=== PATIENT | male | born 1975 | race Caucasian/White ===

== ENCOUNTER → 2020-09-19 10:45 | Outpatient (BNVA) | payer OTHER, SELFPAY | PROVIDERS: PCP Family Medicine; Visit Provider Physician Assistant Medical | DX: S39.012A Strain of muscle, fascia and tendon of lower back, initial encounter (principal); X58.XXXA Exposure to other specified factors, initial encounter; Y93.9 Activity, unspecified; Y92.9 Unspecified place or not applicable; Y99.8 Other external cause status | CPT/HCPCS: 99203 ==

== ENCOUNTER → 2020-09-23 09:12 | Outpatient (BNVA) | payer OTHER, SELFPAY | PROVIDERS: PCP Family Medicine; Visit Provider Physician Assistant Medical | DX: S33.9XXD Sprain of unspecified parts of lumbar spine and pelvis, subsequent encounter (principal); X58.XXXD Exposure to other specified factors, subsequent encounter; M46.1 Sacroiliitis, not elsewhere classified | CPT/HCPCS: 99213 ==

== ENCOUNTER → 2020-09-26 09:33 | Outpatient (BNVA) | payer OTHER, SELFPAY | PROVIDERS: PCP Family Medicine; Visit Provider Physician Assistant | DX: S39.012D Strain of muscle, fascia and tendon of lower back, subsequent encounter (principal); X58.XXXD Exposure to other specified factors, subsequent encounter | CPT/HCPCS: 99213 ==

== ENCOUNTER → 2020-10-07 09:28 | Outpatient (BNVA) | payer OTHER, SELFPAY | PROVIDERS: PCP Family Medicine; Visit Provider Physician Assistant Medical | DX: S33.9XXD Sprain of unspecified parts of lumbar spine and pelvis, subsequent encounter (principal); X58.XXXD Exposure to other specified factors, subsequent encounter | CPT/HCPCS: 99213 ==

== ENCOUNTER 2020-10-24 15:00 | Outpatient (RCR) | payer OTHER, SELFPAY ==
--- NOTE | 2020-09-30 09:18 | MHC.PT.EP ---
[facility] [place] Office [place] Office [place] Office [address] Michael Hutchinson [address] [phone] F: [phone] F: [phone] F: [phone] F: [phone] Physical Therapy Plan of Care Date of Evaluation: 09/30/20 Date of Surgery: NA Diagnosis: Lumbar strain/ sprain Assessment: 44 year old male referred for lumbar strain . Pt injured himself at work about 2 weeks back while was moving a 15lbs tool. He was standing straight and trying to move the tool to the L side when he experienced sharp pain in the L side of his back. Pt's pain got worse with time. No imaging done at this time. Examination reveals pain levels from 4/10 to 7/10 pain with standing for more than 10 minuted, bending, lifting and sitting, decreased trunk ROM, decreased muscle strength, altered posture, and positive response to rubio exercises. He is independent with all ADLS but modifies the way he performs them due to pain. 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 He is a good candidate for PT based on age, goals, physical impairments and functional limitations. He would benefit from therapy to decrease pain, improve ROM, increase muscle strength, postural correction and functional training. Frequency and Duration: The patient will be seen 2/week for 5 weeks Short Term Goals: 1. Pt will have 50% decrease in pain in weeks. 2. Pt will be able to move trunk through all planes of motion without pain in 3 weeks. Radiation Physicist Goals: 1. Pt will be able to perform all ADLS without pain in 4 weeks. 2. Pt will return to PLOF in 5 weeks. Treatment Plan: Modalities to reduce pain, spasms and effusion. Manual therapy to restore motion and function. Therapeutic exercise to improve strength and flexibility. Neuromuscular re-education for posture and balance. Therapeutic activities to return to functional activities of daily living. Electronically signed by: Mariza White DPT Please sign and return to therapist. Thank you for your referral.
--- NOTE | 2020-11-09 10:17 | MHC.PT.DC ---
[facility] [place] Office [place] Office [place] Office [address] Michael Hutchinson [address] [phone] F: [phone] F: [phone] F: [phone] F: [phone] Physical Therapy Discharge Report Diagnosis: Lumbar strain/ sprain Date of Surgery: NA Date of Evaluation: 09/30/20 Date of Discharge: 11/09/20 Treatments to Date: 6 Cancellations to Date: 0 No Shows to Date: 0 Discharge Status: Patient Elected to Stop Discharge Summary: Pt stated that he was pain free and was cleared to return to work. Pt therefore d/c self from therapy. Electronically signed by: Mariza White DPT Please sign and return to therapist. Thank you for your referral.
== END 2020-11-09 10:18 | disposition other institution (70) ==
LOC: HO.PT 15:00
PROVIDERS: PCP Family Medicine; Visit Provider Physician Assistant
DX: S39.012D Strain of muscle, fascia and tendon of lower back, subsequent encounter (principal); M62.830 Muscle spasm of back
CPT/HCPCS: 97110; 97140; 97161; 97530

== ENCOUNTER → 2020-10-26 09:08 | Outpatient (BNVA) | payer OTHER, SELFPAY | PROVIDERS: PCP Family Medicine; Visit Provider Physician Assistant Medical | DX: S39.012D Strain of muscle, fascia and tendon of lower back, subsequent encounter (principal); X58.XXXD Exposure to other specified factors, subsequent encounter | CPT/HCPCS: 99213 ==

== ENCOUNTER 2021-12-08 06:13 | Outpatient (REF) | payer OTHER, SELFPAY ==
--- NOTE | ~2021-12-08 | XR_ITS ---
EXAMINATION: XR HIP, RIGHT CLINICAL INFORMATION: Right hip pain. COMPARISON: None TECHNIQUE: Two views of the right hip. FINDINGS: There is a lytic region within the right femoral head with sclerotic margin and some deformity of the superior aspect of the femoral head with the appearance of possible avascular necrosis. Hip joint space is maintained. No dislocation evident. There appears to be mild degree of femoral head collapse with fracture. XR/XR hip RT min 2V IMPRESSION: Findings consistent with avascular necrosis of the right hip.
[2021-12-08 06:47] LABS: MANUAL DIFF FLAG NO
[2021-12-08 07:10] LABS: Basophils Percent Auto 0.6 % (0-2); Eosinophils Absolute Auto 0.1 X10*3/uL (0.0-0.4); Hematocrit 43.1 % (42.0-52.0); Imm Gran Abs Auto 0.02 X10*3/uL (0.00-0.03); Imm Gran Pct Auto 0.4 % (0.0-0.4); Lymphocytes Absolute Auto 1.4 X10*3/uL (1.2-4.9); Lymphocytes Percent Auto 26.9 % (20-40); Mean Corpuscular HGB Conc 34.8 g/dl (31.0-36.0); Mean Corpuscular Hemoglobin 30.8 pg (27.0-33.0); Mean Corpuscular Volume 88.5 fL (80.0-98.0); Mean Platelet Volume 9.2 fL (9.4-12.4); Monocytes Absolute Auto 0.4 X10*3/uL (0.1-1.2); Monocytes Percent Auto 6.9 % (2-11); Neutrophils Absolute Auto 3.2 x10*3/uL (2.0-8.3); Neutrophils Percent Auto 63.2 % (45-73); Platelet Count 230 X10*3/uL (160-400); Red Blood Count 4.87 X10*6/uL (4.60-5.80); Red Cell Distribution Width 12.8 % (11.0-16.0); White Blood Count 5.1 X10*3/uL (4.8-10.8)
[2021-12-08 07:30] LABS: Alanine Aminotransferase 43 U/L (0-40); Aspartate Amino Transferase 55 U/L (5-37); Cholesterol 201 mg/dL; Glucose Fasting 98 mg/dL (60-99); HDL Cholesterol 56 mg/dL; LDL Cholesterol Calculated 68 mg/dl; Triglycerides 385 mg/dL
[2021-12-08 07:54] LABS: Erythrocyte Sedimentation Rate 13 MM/HR (0-15)
[2021-12-08 07:55] LABS: Thyroid Stimulating Hormone 1.91 uIU/mL (0.32-4.0)
== END 2021-12-08 06:14 | disposition home or self-care (01) ==
LOC: HO.LAB 06:13
PROVIDERS: PCP Family Medicine; Visit Provider Family Medicine
DX: M25.551 Pain in right hip (principal); E78.00 Pure hypercholesterolemia, unspecified; G25.2 Other specified forms of tremor
CPT/HCPCS: 36415; 73502; 80061; 82947; 84443; 84450; 84460; 85025; 85652

== ENCOUNTER 2021-12-28 11:58 | Outpatient (REF) | payer OTHER, SELFPAY ==
--- NOTE | ~2021-12-28 | XR_ITS ---
EXAMINATION: XR PELVIS CLINICAL INFORMATION: Pain and unspecified hip COMPARISON: Radiograph's of the right hip 12/08/2021 TECHNIQUE: AP view of the pelvis. FINDINGS: Redemonstration of lytic and sclerotic changes along the superior aspect of the right femoral head with contour irregularity/flattening of the superior margin compatible with avascular necrosis. There is subtle sclerosis and irregularity along the superomedial aspect of the left femoral head which may represent a smaller area of avascular necrosis as well with minor cortical flattening. The hips are in alignment and joint spaces are maintained. Pelvic ring is maintained. The sacroiliac joints and pubic symphysis are in alignment. Soft tissues are unremarkable. XR/XR pelvis 1-2V IMPRESSION: Redemonstration of changes relating to avascular necrosis of the right femoral head with possible smaller region of AVN involving the superomedial margin of the left femoral head.
== END 2021-12-28 11:59 | disposition home or self-care (01) ==
LOC: HO.HOSX 11:58
PROVIDERS: Visit Provider Orthopaedic Surgery
DX: M25.559 Pain in unspecified hip (principal); M87.051 Idiopathic aseptic necrosis of right femur
CPT/HCPCS: 72170

== ENCOUNTER → 2022-01-01 15:33 | Outpatient (BNVA) | payer OTHER, SELFPAY | PROVIDERS: Visit Provider Orthopaedic Surgery | DX: Z13.89 Encounter for screening for other disorder (principal) ==

== ENCOUNTER → 2022-01-11 10:26 | Outpatient (BNVA) | payer OTHER, SELFPAY | PROVIDERS: PCP Family Medicine; Visit Provider Physician Assistant | DX: Z01.818 Encounter for other preprocedural examination (principal); M87.051 Idiopathic aseptic necrosis of right femur | CPT/HCPCS: 99212 ==

== ENCOUNTER 2022-01-16 10:35 | Inpatient (IN) | payer OTHER, SELFPAY ==
--- NOTE | 2022-01-02 | ECG_ITS ---
Test Reason : preop Blood Pressure : / mmHG Vent. Rate : 088 BPM Atrial Rate : 088 BPM P-R Int : 150 ms QRS Dur : 096 ms QT Int : 356 ms P-R-T Axes : 007 019 038 degrees QTc Int : 430 ms Normal sinus rhythm Incomplete right bundle branch block Borderline ECG When compared with ECG of 12-JAN-2008 05:50, No significant change was found Referred By: Martin Santana Electronically Signed By:CHECO SCHWARTZ
--- NOTE | 2022-01-03 12:36 | CONS_ITS ---
DATE OF SERVICE: 01/16/2022 HISTORY OF PRESENT ILLNESS: This is a 46-year-old white male, well known to me, who presents preoperatively in my office on January 01, 2022. The patient has been seen by Dr. Santana because of progressive right hip pain without any history of known trauma. X-rays reveal obvious aseptic necrosis and he is scheduled for hip replacement 2 weeks from now. I have reviewed his records thoroughly. PAST MEDICAL HISTORY: Includes incomplete right bundle-branch block, occasional intermittent back pain for muscle spasm. He has had inguinal hernia repairs. He has a colon polyp of marginal significance. He has had borderline hypertension in the past, often associated with anxiety, which is a chronic problem for him. Often white-coat type hypertension. He has elevated triglycerides. He also has a family history of cardiovascular disease and slight intentional tremors with little clinical significance. Unfortunately, most of the time when we see him in the office, his blood pressure and sometimes often his pulse are quite elevated. Outside the office, they are variable, but the patient admits he is very nervous and particularly nervous about the surgery coming up. On speaking with the patient other than his anxiety over the surgery, he has otherwise felt fairly well. I have reviewed the orthopedic notes on this case. He presently takes no prescription medications. REVIEW OF SYSTEMS: He has had no chest pain, shortness of breath, known palpitations. He has had no acid reflux, bowel change, or any GI issues. No edema. Genitourinary review of systems is unremarkable. His chief complaint of course is his right hip is quite sore and he has had some limitation in movement secondary to this. Retrospectively, the patient did mention occasional nonspecific pain in the left upper chest in the axilla region, which is random and hurts on movement. This was probably musculoskeletal. The only thing he actually takes at home is a magnesium pill at bedtime. Recently he had noticed slight intention tremors, which have not being clinically significant but we noted it. PHYSICAL EXAMINATION: GENERAL: We find a pleasant, anxious white male, in no distress. He is alert and oriented. He is in no distress. VITAL SIGNS: Unfortunately, his blood pressure is 162/88 and his pulse is 110 at rest. HEENT: Conjunctivae pink, sclerae white. Mucous membranes are moist. NECK: Neck veins are flat. No lymphadenopathy. Carotids are 2+ without bruits. LUNGS: Clear. HEART: Reveals normal sinus rhythm, rate about a 100 to 110. No murmurs are appreciated. ABDOMEN: Soft, nontender. No masses or organomegaly. EXTREMITIES: There is no edema. NEUROLOGIC: Unremarkable. Actually, the tremor he has had in the past were actually little bit less. His EKG which was done on January 02 reveals a normal sinus rhythm. Incomplete right bundle-branch block. No acute changes and no different than it has been over the years. LABORATORY DATA: His laboratory work which was done in November reveals triglycerides of 388, which is in the range of what has been running. Cholesterol however is not bad at 201 with the LDL of 68. His TSH was 1.91, his SGPT is slightly elevated at 43, and fasting blood sugar 98. I believe the modest elevation of his liver enzyme is probably secondary to his triglycerides and maybe early fatty liver. IMPRESSION: 1. Right hip avascular necrosis. 2. Secondary sinus tachycardia. 3. Anxiety and stress. 4. Probable secondary hypertension. 5. High triglycerides. 6. Question fatty liver. 7. History of incomplete right bundle-branch block. 8. Family history of cardiovascular disease. From a medical standpoint, he is fairly stable. I am concerned about his blood pressure and pulse which are may be anxiety related. I started him on low dose propranolol 20 mg t.i.d. to see if this will settle his blood pressure and pulse down somewhat. He has been advised on potential side effects of this as well as to call me if his vital signs change in any way. He is advised not to drink any alcohol for the next few weeks as long as he is on these medications. Otherwise, he is cleared for his surgery. Thank you very much. MD RAMIREZ Falk/WILY / [id number] MARIO
[2022-01-04 12:07] VITALS: BP 159/85; PULSE 98; RESP 20; O2SAT 97; BMI 28.1
--- NOTE | 2022-01-04 12:18 | HO.ANESPROP2 ---
Documented by User: Taisha Thomas NP 01/15/22 09:14 HPI - Anesthesia Eval Consult details Narrative: 46yo M for Right Hip Total Replacement PCP cleared [facility] Active Problems Active Problems: All Active Problems (Updated 01/03/22 @ 09:53 by Sally Phillips RN) Avascular necrosis of bone of right hip (Acute) HTN (hypertension) (Acute) Past Medical History Medical History Anxiety Avascular necrosis of bone of right hip History of right bundle branch block (RBBB) Insomnia Family History Family history of problems with anesthesia: No Surgical History Surgical History History of left inguinal hernia repair History of right inguinal hernia repair History of umbilical hernia repair Hx of colonoscopy History of Problems with Anesthesia: No Social History Social History Are you a primary med care manager to a significant other at home: No Do you presently have visiting nurse or other home services: No Patient Tobacco Use Status: Never used Tobacco Use of substances other than those prescribed or required for medical reasons: Yes Substance Use Type: Marijuana Substance Use Frequency: Daily Have you been hit, kicked, punched, or otherwise hurt by someone within the past year? 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 No CP/SOB with minimal Meds Allergies Allergy/AdvReac Type Severity Reaction Status Date / Time No Known Allergies Allergy Verified 01/11/22 10:30 Home Medications Medication Instructions Recorded Confirmed Last Taken Type ibuprofen 200 mg tablet (Advil) 400 mg PO Q8H 01/03/22 01/16/22 01/02/22 History propranolol 20 mg tablet 20 mg PO TID 01/03/22 01/16/22 01/16/22 11:52 History Exam Exam Date and Time: January 04, 2022 1218 Height,Weight and Vital Signs: Height 5 ft 10 in Weight 88.904 kg Last Vital Signs Pulse 98 01/04/22 12:07 Resp 20 01/04/22 12:07 BP 159/85 H 01/04/22 12:07 Pulse Ox 97 01/04/22 12:07 Pertinent Lab Results Pertinent Lab Results: Laboratory Tests 12/08/21 01/04/22 01/04/22 06:44 13:02 16:10 WBC 5.1 Hgb 15.0 Hct 43.1 Plt Count 230 Sodium 138 Potassium 4.1 Chloride 104 Carbon Dioxide 23 BUN 12 Creatinine 0.81 Nasal Screen MRSA (PCR) NEGATIVE Nasal S. aureus Screen NEGATIVE Nasal MRSA/S.aureus Interp SEE NOTE Narrative Narrative: EKG 12/2021 Vent. Rate : 088 BPM ? ? Atrial Rate : 088 BPM ?? P-R Int : 150 ms? QRS Dur : 096 ms ? ? QT Int : 356 ms ? ? ? P-R-T Axes : 007 019 038 degrees ?? QTc Int : 430 ms ? Normal sinus rhythm Incomplete right bundle branch block Borderline ECG When compared with ECG of 12-JAN-2008 05:50, No significant change was found Airway Mallampati Class: I TM Dist: >3cm Neck ROM: Full Loose/Missing/Broken Teeth: Yes (Molars missing) Heart: RRR Lungs: CTAB Assessment and Plan Assessment Anesthesia Assessment: Anesthesia Plan Discussed and PAT Visit Final Anesthetic Review Family History of Problems with Anesthesia: No History of Problems with Anesthesia: No Documented by User: Bobo Ngo MD 01/16/22 13:55 [facility] Past Medical History Medical History Anxiety Avascular necrosis of bone of right hip History of right bundle branch block (RBBB) Insomnia Surgical History Surgical History History of left inguinal hernia repair History of right inguinal hernia repair History of umbilical hernia repair Hx of colonoscopy Social History Social History Are you a primary med care manager to a significant other at home: No Do you presently have visiting nurse or other home services: No Patient Tobacco Use Status: Never used Tobacco Use of substances other than those prescribed or required for medical reasons: Yes Substance Use Type: Marijuana Substance Use Frequency: Daily Have you been hit, kicked, punched, or otherwise hurt by someone within the past year? 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 Allergies Allergy/AdvReac Type Severity Reaction Status Date / Time No Known Allergies Allergy Verified 01/11/22 10:30 Home Medications Medication Instructions Recorded Confirmed Last Taken Type ibuprofen 200 mg tablet (Advil) 400 mg PO Q8H 01/03/22 01/16/22 01/02/22 History propranolol 20 mg tablet 20 mg PO TID 01/03/22 01/16/22 01/16/22 11:52 History Assessment and Plan Final Anesthetic Review ASA Class: II Final Preanesthetic Review: No Changes in Pt Med Stat, Meds/Allgs Chart Reviewed, Consent Obtained/Reviewed and Anes Risks/Benef Reviewed Patient Risk: Low Procedure Risk: Intermediate Anesthetic Plan Anesthetic Plan: GA Disposition: Standard PACU
[2022-01-04 14:08] LABS: Anion Gap 15 (12-20); Blood Urea Nitrogen 12 mg/dL (9-16); Calcium 9.8 mg/dL (8.4-10.2); Carbon Dioxide 23 mmol/L (22-29); Chloride 104 mmol/L (96-108); Creatinine Clr Calc Pharmacy 127.9; Estimated Glomerular Filt Rate > 60; Glucose Random 91 mg/dL (60-115); Potassium 4.1 mmol/L (3.3-5.1); Sodium 138 mmol/L (135-145)
[2022-01-04 17:35] LABS: MRSA Nasal PCR NEGATIVE (Negative); SA Nasal PCR NEGATIVE (Negative)
[2022-01-16] VITALS (15 sets, daily range): BP systolic 122–169; BP diastolic 71–97; PULSE 66–87; RESP 16–19; TEMP 36.3–36.9; O2SAT 94–99
--- NOTE | ~2022-01-16 | XR_ITS ---
EXAMINATION: XR PELVIS CLINICAL INFORMATION: Hip replacement COMPARISON: Previous x-ray of the pelvis 12/28/2021 TECHNIQUE: AP view of the pelvis. FINDINGS: There is a new right hip replacement in satisfactory position. No fracture or dislocation is seen. There are postoperative changes of the soft tissues. XR/XR pelvis 1-2V IMPRESSION: Satisfactory appearance of right hip replacement.
--- NOTE | 2022-01-16 10:45 | MHC.SHP ---
Pre-Procedural Eval Section A Date of Service: 01/16/22 The patient is an INPATIENT: No Changes since office visit: Yes Patient answered all questions; No Cold of Flu in the past 2 weeks, No New Medical Problems and No Changes in Medication The History & Physical has been completed within 30 days and I have reviewed it.: Yes Section B Chief Complaint: Avascular necrosis of hip Allergies: Allergies Allergy/AdvReac Type Severity Reaction Status Date / Time No Known Allergies Allergy Verified 01/11/22 10:30 Plan I have reviewed the history and physical and performed a pertinent physical examination on my patient. No changes have occurred unless specified.
[2022-01-16] MEDS: oxyCODONE HCl ER 10 MG TAB.ER.12H PO ×2 (11:15→20:09)
[2022-01-16 11:41] LABS: COVID-19 Test Negative (Negative); IDNOW Serial# 16C4AD1C
[2022-01-16] MEDS: Lactated Ringers 1,000 ML 100 ML IVCONT ×3 (11:46→22:52)
--- NOTE | 2022-01-16 11:53 | PC.NURSE ---
pt took his propranolol at 6 am and 1152 today
--- NOTE | 2022-01-16 15:15 | PM.OP ---
Brief Operative Note Date of Service: 01/16/22 Pre-op diagnosis: right hip AVN Post-op diagnosis: same Procedure: Right FERN Implants: Addis Rrident 2 # 54 with 20 deg liner Addis Accolade 2 # 7 127 deg with 36 + 0 ceramic head Surgeon: Martin Santana MD Anesthesia: GETA and local Was an Forming Roll Operator Heavy Duty used for this Procedure?: Yes Forming Roll Operator Heavy Duty: Mitzi Culp Estimated blood loss (mL): 250 IV fluids (mL): 1,000 Pathology: other Condition: stable Disposition: PACU
--- NOTE | 2022-01-16 15:23 | P.OP_ITS ---
Operative Note Operative Note Date of Service: 01/16/22 Narrative: Pre-op diagnosis: right hip AVN Post-op diagnosis: same Procedure: Right FERN Implants: [place] Rrident 2 # 54 with 20 deg liner [place] Accolade 2 # 7 127 deg with 36 + 0 ceramic head Surgeon: Martin Santana MD Anesthesia: GETA and local Was an Computer System Specialist used for this Procedure?: Yes Computer System Specialist: Mitzi Culp Estimated blood loss (mL): 250 IV fluids (mL): 1,000 Pathology: other Condition: stable Disposition: PACU Procedure in detail: Patient was brought into the operating room and placed in the left lateral decubitus position. All bony prominences were well padded and the limb was prepped and draped in standard sterile fashion. Time-out was called to identify proper site procedure proper surgeon IV antibiotics and 1 g of transaxemic acid were administered. I began by making a curvilinear incision over the posterolateral aspect of the greater trochanter. Dissection was taken down to the tensor fascia which was incised in line with the incision and a Charnley retractor was placed. Cautery was used to maintain hemostasis. A werewolf device was also used to maintain hemostasis. The hip was internally rotated and the external rotators were identified. The vessels were cauterized and a full-thickness capsular/external rotator layer was developed starting just proximal to the piriformis. This layer was tagged and a dull Hohmann retractor was placed underneath the neck in the hip was dislocated. The head was eburnated. A neck cut was made 1 cm proximal to the lesser trochanter and the head and neck were removed and measured as a 50mm on the back table. I started with a 46 and sequentially reamed up to a size 54 and impacted a 54 mm cup at approximately 45 degrees of inclination and 25 degrees of version. I then placed a 20 deg posterior lipped liner and turned my attention to the femur. I identified the piriformis insertion and used this as a starting point for my nohemi cutter. The medius tendon was protected with a Hibs retractor. I then used a Charnley awl to identify the canal and a curved curette to remove the lateral bone. I irrigated copiously. I then sequentially broached in the patient's natural version to a size 7 and placed my trial implants. Using a trail head I took the hip through range of motion. I was very satisfied with the stability and length. Therefore I removed all instrumentation and copiously irrigated. I placed my final femoral implant and again took the hip through range of motion and was satisfied with the stability and length. A + 036 cermaic head was impacted in place I then irrigated for 3 minutes with iodine and placed 1 g of local tranaxemic acid. I then performed a capsular closure with 2.0 fiberwire, Tierra's fascia with 0 Vicryl, subcuticular with 2-0 Vicryl and the skin with joseph. Patient was placed into a sterile dressing. Patient was extubated brought to the recovery room in stable condition.
[2022-01-16] MEDS: HYDROmorphone HCl 0.5 MG/0.5 ML SYRINGE 0.25 MG IVPUSH ×4 (15:29→15:49)
[2022-01-16] MEDS: oxyCODONE HCl Immed Release 5 MG TABLET PO (15:29)
[2022-01-16] MEDS: fentaNYL citrate/PF 100 MCG/2 ML VIAL 50 MCG IVPUSH (16:09)
[2022-01-16] MEDS: Ketorolac Tromethamine 30 MG/ML VIAL 15 MG IVPUSH (16:35)
[2022-01-16] MEDS: ondansetron HCL 4 MG/2 ML VIAL IVPUSH (16:47)
[2022-01-16] MEDS: ceFAZolin Sodium/Dextrose,Iso 2 GM/50 ML PIGGYBACK IV (20:08)
[2022-01-16] MEDS: Docusate Sodium 100 MG CAPSULE PO (20:08)
[2022-01-16] MEDS: Celecoxib 200 MG CAPSULE PO (20:08)
[2022-01-17 03:44] VITALS: BP 136/61; PULSE 83; RESP 18; TEMP 36; O2SAT 97
[2022-01-17 05:38] VITALS: RESP 20
[2022-01-17] MEDS: HYDROmorphone HCl 1 MG/ML SYRINGE 0.25 MG IVPUSH (05:38)
[2022-01-17 05:58] LABS: MANUAL DIFF FLAG NO
[2022-01-17 06:04] LABS: Basophils Percent Auto 0.1 % (0-2); Hematocrit 36.6 % (42.0-52.0); Hemoglobin 12.4 g/dl (14.0-18.0); Imm Gran Abs Auto 0.02 X10*3/uL (0.00-0.03); Imm Gran Pct Auto 0.2 % (0.0-0.4); Lymphocytes Absolute Auto 0.6 X10*3/uL (1.2-4.9); Lymphocytes Percent Auto 6.4 % (20-40); Mean Corpuscular HGB Conc 33.9 g/dl (31.0-36.0); Mean Corpuscular Hemoglobin 31.6 pg (27.0-33.0); Mean Corpuscular Volume 93.4 fL (80.0-98.0); Mean Platelet Volume 9.4 fL (9.4-12.4); Monocytes Absolute Auto 0.7 X10*3/uL (0.1-1.2); Monocytes Percent Auto 7.6 % (2-11); Neutrophils Absolute Auto 7.5 x10*3/uL (2.0-8.3); Neutrophils Percent Auto 85.7 % (45-73); Platelet Count 194 X10*3/uL (160-400); Red Blood Count 3.92 X10*6/uL (4.60-5.80); Red Cell Distribution Width 13.2 % (11.0-16.0); White Blood Count 8.8 X10*3/uL (4.8-10.8)
[2022-01-17 06:22] LABS: Anion Gap 12 (12-20); Blood Urea Nitrogen 10 mg/dL (9-16); Calcium 9.3 mg/dL (8.4-10.2); Carbon Dioxide 24 mmol/L (22-29); Chloride 105 mmol/L (96-108); Creatinine Clr Calc Pharmacy 134.5; Estimated Glomerular Filt Rate > 60; Glucose Fasting 141 mg/dL (60-99); Potassium 4.2 mmol/L (3.3-5.1); Sodium 137 mmol/L (135-145)
[2022-01-17 08:00] VITALS: BP 158/80; PULSE 104; RESP 18; TEMP 36.1; O2SAT 95
[2022-01-17] MEDS: Docusate Sodium 100 MG CAPSULE PO (08:06)
[2022-01-17] MEDS: Celecoxib 200 MG CAPSULE PO (08:06)
[2022-01-17] MEDS: oxyCODONE HCl Immed Release 5 MG TABLET 10 MG PO ×3 (08:08→17:56)
[2022-01-17] MEDS: oxyCODONE HCl ER 10 MG TAB.ER.12H PO (08:16)
--- NOTE | 2022-01-17 09:23 | MHC.CM.PN ---
PATIENT LIVES ALONE HE IS FULLY INDEPENDENT WITH HIS ADLS NO DME OR [facility] SERVICES HE DOES REQUEST A REFERRAL TO [facility] AND IT IS NOW PLACED. PATIENT WILL BE STAYING AT HIS MOM'S HOUSE IN [place] THAT IS 3 STEPS IN AND ONE LEVEL OF HIS LIVING SPACE PATIENT IS WILLING TO COMPLETE A HCP, WHICH WILL THEN BE UPLOADED INTO [employer] HE CHOOSES HIS MOTHER MARIAELENA SOLE AGENT. COVID VACCINATED X 2 (MODERNA) PLAN IS DC TODAY OR TOMORROW HOME
--- NOTE | 2022-01-17 10:09 | PM.PNORT ---
Subjective Subjective Date of Service: 01/17/22 Interval history: Postop day 1 status post right hip total arthroplasty. No overnight events He is doing well tolerating pain. Has not been out of bed yet. Physical Exam Vital Signs: Vital Signs: Last Vital Signs Temp 97.0 F 01/17/22 08:00 Pulse 104 H 01/17/22 08:00 Resp 18 01/17/22 08:00 BP 158/80 H 01/17/22 08:00 Pulse Ox 95 01/17/22 08:00 BMI result Body Mass Index 28.1 Const: General: cooperative, healthy appearing and no acute distress Resp: Effort & Inspection: normal respiratory effort and able to speak in complete sentences Cardio: Rate: regular rate Peripheral pulses: Peripheral pulses 2+ throughout GI: Palpation (GI): Soft to palpation Skin: General skin exam: no rashes or lesions noted Extrem: Other: incision clean dry and intact. No erythema or effusion. Calf supple nontender. Neurovascularly intact. Procedures Date of Service Date of Service: 01/17/22 Progress Note: A&P Assessment and plan (1) Status post total replacement of right hip: Status: Acute Assessment and Plan: Continue pain mgmnt Begin Aspirin for dvt ppx begin PT for RT FERN Dispo planning-Pending PT eval, pain mgmnt Fall Risk Details Current Medications: Current Medications Acetaminophen (Acetaminophen 325 Mg Tablet) 650 mg PO Q6H PRN PRN Reason: Pain, Mild (Pain Scale 1-3) Aspirin (Aspirin 325 Mg Tablet) 325 mg PO BID [facility] Celecoxib (Celecoxib 200 Mg Capsule) 200 mg PO BID [facility] Last Admin: 01/17/22 08:06 Dose: 200 mg Documented by: Docusate Sodium (Docusate Sodium 100 Mg Capsule) 100 mg PO BID [facility] Last Admin: 01/17/22 08:06 Dose: 100 mg Documented by: Fentanyl (Fentanyl Citrate/Pf 100 Mcg/2 Ml Vial) 50 mcg IVPUSH Q5M PRN; Protocol PRN Reason: Pain, Severe (Pain Scale 7-10) Last Admin: 01/16/22 16:09 Dose: 50 mcg Documented by: Hydromorphone HCl (Hydromorphone Hcl 1 Mg/Ml Syringe) 0.25 mg IVPUSH Q4H PRN; Protocol PRN Reason: Pain, Severe (Pain Scale 7-10) Last Admin: 01/17/22 05:38 Dose: 0.25 mg Documented by: Lactated Ringer's (Lr) 1,000 mls @ 100 mls/hr IVCONT .Q10H [facility] Last Admin: 01/16/22 22:52 Dose: 100 mls/hr Documented by: Ondansetron HCl (Ondansetron Hcl 4 Mg/2 Ml Vial) 4 mg IVPUSH Q8H PRN PRN Reason: Nausea and Vomiting Oxycodone HCl (Oxycodone Hcl Immed Release 5 Mg Tablet) 10 mg PO Q4H PRN PRN Reason: Pain, Moderate (Pain Scale 4-6 Last Admin: 01/17/22 08:08 Dose: 10 mg Documented by: Oxycodone HCl (Oxycodone Hcl Er 10 Mg Tab.Er.12h) 10 mg PO BID [facility] Last Admin: 01/17/22 08:16 Dose: 10 mg Documented by: Sodium Chloride (0.9 % Sodium Chloride Flush 3 Ml Syringe) 3 ml IVFLUSH QSHIFT [facility] Last Admin: 01/17/22 00:47 Dose: Not Given Documented by: Time Spent With Patient Time: Total time spent is greater than 50% in coordination of care (as documented) at patient's floor/unit and/or counseling patient: Quality Stroke Does the patient have a stroke diagnosis?: No VTE Prior VTE?: No VTE Risk Level:: Surgical - very high VTE Device Contraindication: N/A - Device Ordered VTE Drug Contraindication: N/A - Med Ordered
[2022-01-17 11:18] VITALS: BP 141/80; PULSE 89; RESP 18; TEMP 36.4; O2SAT 97
--- NOTE | 2022-01-17 12:41 | MHC.CM.PN ---
PATIENT WILL DC TO HIS MOTHER'S HOME TODAY [facility] WILL PROVIDE P.T. AND O.T. SERVICES IN THE HOME. AGENCY HAS BEEN UPDATED WITH MOTHER'S ADDRESS. RN, SURGICAL P.A., AND PATIENT AWARE OF PLAN.
--- NOTE | 2022-01-17 12:57 | HO.POSTANES ---
Post Anesthesia Evaluation Post Anesthesia Evaluation Vital Signs: Vital Signs Temp Pulse Resp BP Pulse Ox 01/17/22 11:18 97.5 F 89 18 141/80 H 97 01/17/22 08:00 97.0 F 104 H 18 158/80 H 95 01/17/22 05:38 20 01/17/22 03:44 96.8 F 83 18 136/61 97 Anesthesia: General LMA Mental Status: Awake Pain Control: Satisfactory Nausea/Vomiting: None Hydration: Adequate Anesthesia-Related Issues: No Anes. Related Issues
[2022-01-17] MEDS: Aspirin 325 MG TABLET PO (13:03)
--- NOTE | 2022-01-17 14:12 | PM.DS ---
DS: Providers Provider Date of Service: 01/17/22 Date of admission: 01/16/22 10:35 Primary care physician: Gilmar De Anda MD Consults: 01/16/22 18:01 Consult to Hospitalist Routine Consulting Provider: Hospitalist Reason For Exam: HTN DS: Diagnosis Discharge Diagnosis (1) Status post total replacement of right hip: Status: Acute DS: Summary Hospital Course Hospital Course: The patient underwent a successful right total hip arthroplasty, was transferred to PACU and then to the floor to recover. During their stay, their vitals were stable, afebrile at 98.1 . Labs were unremarkable, H/H 12.4/36.6 . POD 1 he was started on ASA for DVT ppx, they also received PT/OT services twice a day. Prior to discharge, their dressing was change, incision clean dry and intact, new Aquacel dressing applied and the plan was to be discharged home with VNA. Time Spent with Patient Time attestation: Total time spent providing and/or coordinating discharge services: Discharge coordination time: Less than 30 minutes Quality: Stroke Does the patient have a stroke diagnosis?: No Physical Exam Vital Signs: Vital Signs: Last Vital Signs Temp 97.5 F 01/17/22 11:18 Pulse 89 01/17/22 11:18 Resp 18 01/17/22 11:18 BP 141/80 H 01/17/22 11:18 Pulse Ox 97 01/17/22 11:18 BMI result Body Mass Index 28.1 Const: General: cooperative, healthy appearing and no acute distress Resp: Effort & Inspection: normal respiratory effort and able to speak in complete sentences Cardio: Rate: regular rate Peripheral pulses: Peripheral pulses 2+ throughout GI: Palpation (GI): Soft to palpation Skin: General skin exam: no rashes or lesions noted Extrem: Other: incision clean dry and intact. Mireya intact. No erythema or effusion. Calf supple nontender. Neurovascularly intact. DS: Data Data Completed and Pending Pending studies at discharge: Pending at discharge 01/16/22 14:56 Surgical [PTH] Routine Labs on day of discharge: Laboratory Results - last 24 hr 01/17/22 01/17/22 05:31 05:31 WBC 8.8 RBC 3.92 L Hgb 12.4 L Hct 36.6 L MCV 93.4 MCH 31.6 MCHC 33.9 RDW 13.2 Plt Count 194 MPV 9.4 Immature Gran % (Auto) 0.2 Neut % (Auto) 85.7 H Lymph % (Auto) 6.4 L [place] % (Auto) 7.6 Eos % (Auto) 0.0 Baso % (Auto) 0.1 Lymph # (Auto) 0.6 L [place] # (Auto) 0.7 Eos # (Auto) 0.0 Baso # (Auto) 0.0 Abs Immat Gran (auto) 0.02 Absolute Neuts (auto) 7.5 Absolute Nucleated RBC 0.000 Nucleated RBC % (auto) 0.0 Sodium 137 Potassium 4.2 Chloride 105 Carbon Dioxide 24 Anion Gap 12 BUN 10 Creatinine 0.77 Estim Creat Clear Calc 134.5 Estimated GFR > 60 Fasting Glucose 141 H D Calcium 9.3 Discharge Plan Discharge Patient Disposition: Home Health Service Discharge Diagnosis: rt brenda Referrals: [facility] [Outside] - 1 Week ([facility] WILL PROVIDE PHYSICAL AND OCCUPATIONAL THERAPY SERVICES TO ASSIST WITH YOUR RECOVERY. BEST OF LUCK TO YOU ADEN :)) Mitzi Culp PA-C [Physician Wastewater Treatment Engineer] - 1 Week (02/01/22 1:45 [facility] Mitzi Culp PA-C) Discharge Medications: New docusate sodium 100 mg Capsule 100 mg PO BID 14 Days Qty: 28 0RF acetaminophen 325 mg Tablet 650 mg PO Q6H PRN (Reason: Pain, Mild (Pain Scale 1-3)) 30 Days Qty: 240 0RF aspirin 325 mg Tablet 325 mg PO BID 42 Days Qty: 84 0RF oxycodone 10 mg tablet 10 mg PO Q8H PRN (Reason: pain) 7 Days Qty: 21 0RF Rx Instructions: Partial Fill upon patient request Continued propranolol 20 mg Tablet 20 mg PO TID 0RF Discontinued ibuprofen [Advil] 200 mg Tablet 400 mg PO Q8H 0RF Discharge Orders: Discharge Order (Routine); Ordered 01/17/22 Ordered By: Mitzi Culp Diet: regular diet Activity on Discharge: Use cane or walker Stand Alone Forms: Patient Portal Discharge page Care Plan Goals: Restore function of joint Health Concerns: none Plan of Treatment: Physical Therapy for Total hip arthroplasty: posterior precautions, gait training, ROM, strength Limit stair climbing No showering, no tub bath-keep dressing clean, dry and intact No driving x6 weeks Continue Aspirin x 6 weeks Follow up with [facility] Orth[facility] in 2 weeks Assessment: Physical Therapy Pain management DVT prophylaxis Discharge Date/Time: 01/17/22 18:30
--- NOTE | 2022-01-17 14:36 | W.MHC.F2F ---
Service Date Service Date: 01/17/22 Encounter Date of encounter: 01/17/22 Reasons for Services Signs and symptoms assessed: Pt. is considered homebound due to recent surgery. Unable to drive, poor balance, poor gait mechanics. Reason for physical therapy: home safety and mobility, therapeutic exercises, restore joint function, gait/transfer training, assess need for DME and ADL training Reason for occupational therapy: home safety and mobility, therapeutic exercises, restore joint function, gait/transfer training, assess need for DME and ADL training Homebound: Leaving the home is medically contraindicated at this time without the asist of a device and/or another person due th the listed conditions above and below. Reason homebound: unsteady gait / fall risk, leg weakness, pain with ambulation, pain with transfers, poor balance / fall risk and unable to drive Homebound supporting statement: Pt. is considered homebound due to recent surgery. Unable to drive, poor balance, poor gait mechanics. Certification: Based on the above findings, I certify that this patient is confined to the home and needs intermittent custodial care, physical therapy and/or speech therapy, or continues to need occupational therapy. The patient is under my care, and I have initiated the establishment of the plan of care. The patient will be followed by a physician who will periodically review the plan of care.
[2022-01-17 15:18] VITALS: BP 131/76; PULSE 91; RESP 18; TEMP 36.7; O2SAT 96
[2022-01-17] MEDS: Acetaminophen 325 MG TABLET 650 MG PO (17:56)
== END 2022-01-17 18:30 | disposition home health service (06) | DRG 324 ==
LOC: HO.SSSA 10:55 → HO.S3 15:26
PROVIDERS: Nurse Practitioner; Physician Assistant; Absent Provider Family Medicine; Admitting Provider Orthopaedic Surgery; PCP Family Medicine; Visit Provider Orthopaedic Surgery
PROC: 0SR90JA Replacement of Right Hip Joint with Synthetic Substitute, Uncemented, Open Approach (ICD-10-PCS; CPT 27130; principal; 2022-01-16 13:10)
DX: M87.051 Idiopathic aseptic necrosis of right femur (principal); Z20.822 Contact with and (suspected) exposure to COVID-19; Z79.899 Other long term (current) drug therapy
CPT/HCPCS: 27130; 36415; 72170; 80048; 85025; 86850; 86900; 86901; 87635; 87640; 87641; 88304; 88305; 88311; 93005; 97110; 97116; 97162; 97165; C1776; J0131; J0690; J1100; J1170; J1885; J2250; J2405; J3010

== ENCOUNTER → 2022-02-01 13:46 | Outpatient (BNVA) | payer OTHER, SELFPAY | PROVIDERS: PCP Family Medicine; Visit Provider Physician Assistant | DX: Z13.89 Encounter for screening for other disorder (principal) ==

== ENCOUNTER → 2022-03-01 10:29 | Outpatient (BNVA) | payer OTHER, SELFPAY | PROVIDERS: PCP Family Medicine; Visit Provider Physician Assistant | DX: Z13.89 Encounter for screening for other disorder (principal) ==

== ENCOUNTER 2022-04-02 09:00 | Outpatient (RCR) | payer OTHER, SELFPAY ==
--- NOTE | 2022-02-13 14:26 | MHC.PT.EP ---
[facility] [place] [facility] [place] [facility] [place] [facility] [address] Michael Hutchinson [address] [phone] F: [phone] F: [phone] F: [phone] F: [phone] Physical Therapy Plan of Care Date of Evaluation: Date of Surgery: Diagnosis: Presence of right artificial hip joint: signed by Dr. Santana 01/17/22 Presence of right artificial hip joint s/p RT hip 01/16 office post op appt 02/01/ at 1:45pm Status post total knee replacement of right hip Assessment: Pt is a RHD, 46 y/o male s/p R posterior FERN on 01/16/[address] Santana. Pt exhibits decreased strength R hip, impaired balance, impaired ROM of the R knee and R hip. Pt currently using single point cane. Pt currently weak in R hip abduction, hip extensors, and quadriceps. He exhibits antalgic gait. 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 Pt would benefit from attending skilled PT services at a frequency of 2x/week x 4 weeks to address impairments, implement HEP, and restore functional mobility to resume PLOF. Pt's therapy frequency may be impacted as he has a $50 copay per visit. Pt was educated re: posterior FERN, goals of therapy, findings of evaluation, and indications for treatment. His joseph were removed from incision at previous follow-up, steri-strips intact, incision healing well with no evidence or sign of infection. Pt issued written HEP: AP, glute set, QS, SAQ, supine hip abd/add to neutral, trialed SL hip abd clamshell and with knee extended (not added for home program this date). Educated re: ice for home and sx. Pt was also educated in the benefit in using tylenol prn as this was prescribed post operatively (he verbalizes he has weaned from use). Frequency and Duration: The patient will be seen 2x/week x 4 weeks Short Term Goals: 1. Pt will demonstrate strength of R hip abduction to 3/5. (IR: 3-/5 R hip). 2. Pt will demonstrate strength R hip extension to 4/5. (IR: 3/5). 3. Stand<>Sit with good eccentric control. (IR: decreased on R). 4. Pt will demonstrate carryover of 3:3 FERN posterior precautions. (IR: verbalizes but has decreased carryover for bed mobility- educated to use pillow). Penitentiary Goals: 1. Pt will negotiate a flight of stairs reciprocally with good dynamic balance with no AD. (Step to pattern antalgic gait, with use of std cane). 2. Pt will demonstrate strength hip abd 5/5). 3. Pt will demonstrate strength hip ext 5/5). 4. Return to work with good functional squat technique; understanding posterior total hip precautions 3:3 trial in relationship to daily function. Treatment Plan: Modalities to reduce pain, spasms and effusion. Manual therapy to restore motion and function. Therapeutic exercise to improve strength and flexibility. Neuromuscular re-education for posture and balance. Therapeutic activities to return to functional activities of daily living. Electronically signed by: Giselle Garcia, PT, DPT Please sign and return to therapist. Thank you for your referral.
== END 2022-05-11 11:31 | disposition home or self-care (01) ==
LOC: HO.PTWFD 09:00
PROVIDERS: PCP Family Medicine; Visit Provider Orthopaedic Surgery
DX: Z96.641 Presence of right artificial hip joint (principal)
CPT/HCPCS: 97110; 97162; 97535

== ENCOUNTER 2022-04-13 10:08 | Outpatient (REF) | payer OTHER, SELFPAY ==
--- NOTE | ~2022-04-13 | XR_ITS ---
EXAMINATION: XR PELVIS CLINICAL INFORMATION: Pain. COMPARISON: None TECHNIQUE: AP view of the pelvis. FINDINGS: There is a total right hip prosthesis with the prosthetic components in satisfactory alignment. The left hip joint space is normal. Bilateral SI joints are symmetrical and normal. No visible acute fracture or lytic process seen. The soft tissues are normal. XR/XR pelvis 1-2V IMPRESSION: Total right hip prosthesis with prosthetic components in satisfactory alignment. No prosthetic loosening seen. The left hip joint and SI joints are symmetrical and normal.
== END 2022-04-13 10:09 | disposition home or self-care (01) ==
LOC: HO.HOSX 10:08
PROVIDERS: Visit Provider Orthopaedic Surgery
DX: M25.559 Pain in unspecified hip (principal)
CPT/HCPCS: 72170

== ENCOUNTER 2022-06-14 06:13 | Outpatient (REF) | payer OTHER, SELFPAY ==
[2022-06-14 07:37] LABS: Glucose Fasting 102 mg/dL (60-99)
[2022-06-14 08:14] LABS: Microalbum/Creatinine Ratio Ur 27.6 ug/mg cr
== END 2022-06-14 06:14 | disposition home or self-care (01) ==
LOC: HO.LAB 06:13
PROVIDERS: PCP Family Medicine; Visit Provider Family Medicine
DX: R79.89 Other specified abnormal findings of blood chemistry (principal)
CPT/HCPCS: 36415; 82043; 82947

== ENCOUNTER 2022-10-05 09:47 | Outpatient (REF) | payer OTHER, SELFPAY ==
--- NOTE | ~2022-10-05 | XR_ITS ---
EXAMINATION: XR HIP, LEFT CLINICAL INFORMATION: Left hip pain. COMPARISON: AP pelvis of 04/13/2022. TECHNIQUE: Two views of the left hip. FINDINGS: There is no evidence of acute fracture or dislocation of the left hip. Mild collar spurring is present. No abnormal sclerotic or lytic lesion is appreciated. No femoral head collapse is seen. No spurring of the greater or lesser trochanters identified. XR/XR hip LT min 2V IMPRESSION: Mild degenerative change of the left hip. No significant change from study of 04/13/2022.
== END 2022-10-05 09:48 | disposition home or self-care (01) ==
LOC: HO.XRAY 09:47
PROVIDERS: PCP Family Medicine; Visit Provider Family Medicine
DX: M25.552 Pain in left hip (principal)
CPT/HCPCS: 73502

== ENCOUNTER 2024-01-24 09:43 | Outpatient (REF) | payer OTHER, SELFPAY ==
--- NOTE | ~2024-01-24 | XR_ITS ---
EXAMINATION: XR PELVIS CLINICAL INFORMATION: Hip pain COMPARISON: X-ray pelvis 04/13/2022, x-ray left hip 10/05/2022 TECHNIQUE: AP view of the pelvis. FINDINGS: Right total hip prosthesis, with stable expected position and alignment. No hardware fracture. No suspicious lori-hardware lucency is seen. Left hip joint space is maintained. Patchy lucencies and sclerosis in the left femoral head, could be related to overlapping densities versus possible avascular necrosis. Question mild flattening of the medial aspect of the femoral head. Symphysis pubis and SI joints are intact. Phleboliths in the pelvis. XR/XR pelvis 1-2V IMPRESSION: Right total hip prosthesis with prosthetic components in satisfactory alignment. No radiographic findings to suggest hardware complications. Left femoral head findings from possible avascular necrosis. This can be further evaluated with MRI.
== END 2024-01-24 09:44 | disposition home or self-care (01) ==
LOC: HO.HOSX 09:43
PROVIDERS: Visit Provider Orthopaedic Surgery
DX: M87.052 Idiopathic aseptic necrosis of left femur (principal)
CPT/HCPCS: 72170

== ENCOUNTER 2024-01-24 09:49 | Outpatient (AMB) | payer OTHER, SELFPAY ==
--- NOTE | 2024-01-24 10:02 | A.OFFVIS_ITS ---
Intake Vital Signs 01/24/24 10:14 Height 5 ft 10 in Weight 205 lb BMI 29.4 Intake Visit Reasons: Newprob-Left hip pain Intake Note: Mervin is a 48 year old male who presents today for a new problem visit with complaints of left hip pain. Hx of Right FERN 01/16/22. Patient reports intermittent pain in the groin area for about 16 months that has been getting worse the last couple of months. His pain radiates down to his knee with prolong standing. He states a lot of similarities in symptoms that he had in his right hip. No previous tx. Allergies No Known Allergies Allergy (Verified 01/24/24 10:19) HPI Newprob-Left hip pain HPI Details Mervin is a 48 year old male who presents today for a new problem visit with complaints of left hip pain. Hx of Right FERN 01/16/22. Patient reports intermittent pain in the groin area for about 16 months that has been getting worse the last couple of months. His pain radiates down to his knee with prolong standing. He states a lot of similarities in symptoms that he had in his right hip. No previous tx. He is concerned that his left hip will progress to severe pain like hirs right hip did. [facility] Medical History (Updated 01/24/24 @ 14:17 by Martin Santana MD) Avascular necrosis of bone of right hip History of right bundle branch block (RBBB) Insomnia Anxiety Surgical History (Updated 01/24/24 @ 10:15 by MARIANNA Jackson) History of right hip replacement Hx of colonoscopy History of umbilical hernia repair History of right inguinal hernia repair History of left inguinal hernia repair Social History Household Members: None Housing: House Are you a primary managed care nurse to a significant other at home: No Do you presently have visiting nurse or other home services: No Patient Tobacco Use Status: Never used Tobacco Substance Use Type: Marijuana service: No Current occupational 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 There is a mildly + impingement test on the left Results Reviewed Results Reviewed: I personally reviewed relevant radiographs. Right FERN in expected post operative position with no hardware complications or evidence of loosening Left hip with stable AVN without slight deterioration compared to imaging from 2021 but no femoral head collapse Assessment & Plan Assessment & Plan (1) Avascular necrosis of bone of left hip: Code(s): M87.052 - Idiopathic aseptic necrosis of left femur Plan: Mervin has left hip AVN that has not collapsed. His symptoms are relatively mild. We discussed this and he will let me know if his symptoms worsen. No intervention warranted at this time. Orders: Orders XR pelvis 1-2V Today M25.559 - Pain in unspecified hip Coding Level of Care Code Est Pt Level 4 (49842) Diagnoses Avascular necrosis of bone of left hip M87.052
[2024-01-24 10:14] VITALS: BMI 29.4
== END 2024-01-24 11:05 | disposition home or self-care (01) ==
PROVIDERS: PCP Family Medicine; Visit Provider Orthopaedic Surgery
DX: M87.052 Idiopathic aseptic necrosis of left femur (principal)
CPT/HCPCS: 99213

== ENCOUNTER 2024-06-19 07:28 | Day surgery (SDC) | payer OTHER, SELFPAY ==
--- NOTE | 2024-06-17 14:10 | HO.ANESPROP2 ---
Documented by User: Taisha Thomas NP 06/17/24 14:10 HPI - Anesthesia Eval Consult details Narrative: 48yo M for Colonoscopy PMFSH Active Problems Active Problems: All Active Problems Avascular necrosis of bone of left hip (Acute) Status post total replacement of right hip (Acute) Avascular necrosis of bone of right hip (Acute) HTN (hypertension) (Acute) Past Medical History Medical History HTN (hypertension) Avascular necrosis of bone of right hip History of right bundle branch block (RBBB) Insomnia Anxiety Family History Family history of problems with anesthesia: No Surgical History Surgical History History of right hip replacement Hx of colonoscopy History of umbilical hernia repair History of right inguinal hernia repair History of left inguinal hernia repair History of Problems with Anesthesia: No Social History Social History Household Members: None Housing: House Are you a primary acute care physical therapist to a significant other at home: No Do you presently have visiting nurse or other home services: No Patient Tobacco Use Status: Never used Tobacco Use of substances other than those prescribed or required for medical reasons: Yes Substance Use Type: Marijuana Substance Use Type Other:: smoked and edibles Are you DNR?: No Advance Directives: No Advance Directives Information Provided: Yes service: No Current occupational status: employed 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 Allergies Allergy/AdvReac Type Severity Reaction Status Date / Time No Known Allergies Allergy Verified 06/19/24 07:42 Home Medications ?Medication ?Instructions ?Recorded ?Confirmed ?Last Taken ?Type metoprolol succinate 25 mg 25 mg PO DAILY 05/25/22 06/19/24 06/19/24 06:20 History tablet,extended release 24 hr Assessment and Plan Assessment Anesthesia Assessment: Chart Reviewed Final Anesthetic Review Family History of Problems with Anesthesia: No History of Problems with Anesthesia: No Documented by User: Azra Penny MD 06/19/24 08:29 [facility] Past Medical History Medical History HTN (hypertension) Avascular necrosis of bone of right hip History of right bundle branch block (RBBB) Insomnia Anxiety Surgical History Surgical History History of right hip replacement Hx of colonoscopy History of umbilical hernia repair History of right inguinal hernia repair History of left inguinal hernia repair Social History Social History Household Members: None Housing: House Are you a primary acute care physical therapist to a significant other at home: No Do you presently have visiting nurse or other home services: No Patient Tobacco Use Status: Never used Tobacco Use of substances other than those prescribed or required for medical reasons: Yes Substance Use Type: Marijuana Substance Use Type Other:: smoked and edibles Are you DNR?: No Advance Directives: No Advance Directives Information Provided: Yes service: No Current occupational status: employed 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 Allergies Allergy/AdvReac Type Severity Reaction Status Date / Time No Known Allergies Allergy Verified 06/19/24 07:42 Home Medications ?Medication ?Instructions ?Recorded ?Confirmed ?Last Taken ?Type metoprolol succinate 25 mg 25 mg PO DAILY 05/25/22 06/19/24 06/19/24 06:20 History tablet,extended release 24 hr Exam Airway Mallampati Class: II TM Dist: >3cm Neck ROM: Full Heart: rrr Lungs: cta Assessment and Plan Assessment Anesthesia Assessment: Anesthesia Plan Discussed Final Anesthetic Review NPO: Yes ASA Class: III Final Preanesthetic Review: No Changes in Pt Med Stat, Meds/Allgs Chart Reviewed, Consent Obtained/Reviewed and Anes Risks/Benef Reviewed Patient Risk: Intermediate Procedure Risk: Low Anesthetic Plan Anesthetic Plan: MAC: Disposition: Standard PACU
[2024-06-17 16:21] VITALS: BMI 29.0
[2024-06-19 07:43] VITALS: BMI 28.0
[2024-06-19 08:18] VITALS: BP 132/81; PULSE 88; RESP 15; TEMP 36.6; O2SAT 95
[2024-06-19 09:36] VITALS: BP 123/65; PULSE 75; RESP 15; TEMP 36.1; O2SAT 99
--- NOTE | 2024-06-19 09:40 | PM.OP ---
Brief Operative Note Date of Service: 06/19/24 Pre-op diagnosis: Screening Post-op diagnosis: other (Internal hemorrhoids) Procedure: Colonoscopy to the cecum and TI Surgeon: Kike Foley MD Anesthesia: MAC Was an Wooden Frame Builder used for this Procedure?: No Estimated blood loss (mL): 0 Pathology: none sent Condition: stable Disposition: PACU
[2024-06-19 09:51] VITALS: BP 125/79; PULSE 76; RESP 18; TEMP 36.1; O2SAT 98
--- NOTE | 2024-06-19 09:52 | OP_ITS ---
DATE OF SERVICE: 06/19/2024 SURGEON: Kike Foley MD INDICATIONS: The patient presents for evaluation of colorectal cancer screening. Full consent has been obtained from him for this, including risks of bleeding and perforation. PREOPERATIVE DIAGNOSIS: Colorectal cancer screening. POSTOPERATIVE DIAGNOSIS: PROCEDURE PERFORMED: Colonoscopy to the cecum and terminal ileum. ESTIMATED BLOOD LOSS: COMPLICATIONS: ANESTHESIA: Monitored anesthesia care. ASSISTANTS: SPECIMENS: POSTOPERATIVE DIAGNOSES: Colorectal cancer screening, internal hemorrhoids. DESCRIPTION OF PROCEDURE: The patient was placed in the left lateral decubitus position. The digital rectal exam revealed no abnormalities. The Olympus video pediatric colonoscope was then entered into the rectum and advanced easily to the cecum. Once in the cecum, I did identify normal-appearing cecal pouch with appendiceal orifice and a normal-appearing ileocecal valve. The terminal ileum was cannulated and appeared normal. Scope withdrawn back in the colon. The entire cecum and ileocecal valve appeared normal. The scope was slowly withdrawn assessing all mucosal surfaces carefully. Preparation was excellent. I did not visualize any sign of polyps, colitis, or angiodysplasias. In the rectum, scope was retroflexed, visualizing small internal hemorrhoids, but no other pathology. The rectal mucosa appeared normal. The scope was straightened and withdrawn from the patient. He tolerated the procedure well and was returned to the recovery area in stable condition. IMPRESSION: Internal hemorrhoids, otherwise normal colonoscopy. PLAN: Given his previous history of a tubular adenoma, I would recommend a followup colonoscopy in 5 years. He will, otherwise, see me on a p.r.n. basis. Kike Foley MD RMW/MODL / [id number]
== END 2024-06-19 10:35 | disposition home or self-care (01) ==
PROVIDERS: PCP Family Medicine; Visit Provider Internal Medicine
PROC: 0DJD8ZZ Inspection of Lower Intestinal Tract, Via Natural or Artificial Opening Endoscopic (ICD-10-PCS; CPT 45378; principal; 2024-06-19 08:30)
DX: Z12.11 Encounter for screening for malignant neoplasm of colon (principal); Z86.010 Personal history of colon polyps; K64.8 Other hemorrhoids; I10 Essential (primary) hypertension; Z79.899 Other long term (current) drug therapy; Z98.890 Other specified postprocedural states
CPT/HCPCS: 45378; J2704

== ENCOUNTER 2024-11-19 06:21 | Outpatient (REF) | payer OTHER, SELFPAY ==
--- OUTSIDE RECORDS SUMMARY | 2024-11-19 06:24 | XMS_ITS | Patient Health Record ---
Author Organization [facility] Address [address] [place] [address] Care Team Providers Care Master [place] Name Role Phone Gilmar De Anda MD Primary Care Provider Kike Bermudez Unavailable [phone] ALLERGIES No Known Allergies REASON FOR REFERRAL No Information MEDICATIONS Medication SIG (Take, Route, Frequency, Duration) Notes Start Date End Date Status Metoprolol Succinate ER 25 MG TAKE 1 TABLET BY MOUTH EVERY DAY Oral for 90 Active IMMUNIZATIONS Vaccine Route Administration Date Status Comme nts Influenza Unknown 03/04/2024 Refused SOCIAL HISTORY Tobacco Use: Social History Observation Description Date Details (start date - stop date) Never Smoker NA - NA Sex Assigned At : Social History Observation Description Sex Assigned At Unknown Tobacco Use/Smoking Question Answer Notes Patient is a nonsmoker Alcohol Screen Question Answer Notes Did you have a drink contain ing alcohol in the past year? Yes How often did you have a dri nk containing alcohol in the past year? 4 or more times a week (4 points) How many drinks did you have on a typical day when you were drinking in the past year? 1 or 2 drinks (0 point) How often did you have 6 or more drinks on one occasion in the past year? Never (0 point) Points 4 Interpretation Positive PROBLEMS Problem Type ICD Code Onset Dates Problem Status W/U Status Risk SNOMED Code Notes Problem Colon cancer screening (Z12.11) Active confirmed Colon cancer screening (608148581) Problem History of adenomatous polyp of colon (Z86.010) Active confirmed History of adenomatous polyp of colon (145330428) Problem Personal history of colonic polyps (Z86.010) Active confirmed History of polyp of colon (situation) (337046346) Problem Encounter for other preprocedural examination (Z01.818) Active confirmed Pre-procedure evaluation check (535317413) VITAL SIGNS Temperature 97.3 degrees Fahrenheit 03/04/2024 Blood pressure diastolic 00 mm Hg 03/04/2024 Height 5 ft 10 in in 03/04/2024 Blood pressure systolic 000 mm Hg 03/04/2024 Weight 202 lb 2 oz lbs 03/04/2024 BMI 29.00 kg/m2 03/04/2024 Encounters Encounter Location Date Provider Diagnosis [facility] Out[facility] [address] [place], [place] [phone] 06/19/2024 Kike oFley Colon cancer screeni ng Z12.11 ; Personal history of colonic polyps Z86.010 and Other hemorrhoids K64.8 [facility] [address] [place] [address] 03/04/2024 Kike Foley Colon cancer screeni ng Z12.11 ; Encounter for other preprocedural examination Z01.818 and History of adenomatous polyp of colon Z86.010 ASSESSMENTS Encounter Date Diagnosis Assessment Notes Treatment Notes Treatment Clinical Notes 06/19/2024 Colon cancer screening (ICD-10 - Z12.11) 06/19/2024 Personal history of colonic polyps (ICD-10 - Z86.010) 03/04/2024 Colon cancer screening (ICD-10 - Z12.11) 03/04/2024 Encounter for other preprocedural examination (ICD-10 - Z01.818) 06/19/2024 Other hemorrhoids (ICD-10 - K64.8) 03/04/2024 History of adenomatous polyp of colon (ICD-10 - Z86.010) PLAN OF TREATMENT Future Test Test Name Order Date COLONOSCOPY 03/04/2024 Insurance Providers Payer Name Payer Address Payer Phone Subscriber Number Group Number Insured Name Patient Relationship to Insured Coverage Start Date Coverage End Date [facility] [address] [place] [phone] [id number] MATTHIEU MONTELONGO Self - patient is the insured MEDICAL (GENERAL) HISTORY Medical History History ICD Code HTN Colonoscopy 01/[address] Gerber with the removal of a small tubular adenoma Denies [place],DM,CVA,Lung disease,renal dise ase Surgical History Surgery Date(Month/Year) Right hip replacement-avascular necrosis --Dr. Santana 2021 4 hernias--bilateral inguinal and umbili gladys x 2.
--- OUTSIDE RECORDS SUMMARY | 2024-11-19 06:24 | XMS_ITS ---
Author Organization [facility] Address [address] [place] [address] Care Team Providers Care Indoor Landscaper/Gardener Name Role Phone Adilson MCDUFFIE, Gilmar Primary Care Provider Unavailab Kike Dover Unavailable [phone] REASON FOR VISIT screening PROBLEMS Problem Type ICD Code Onset Dates Problem Status W/U Status Risk SNOMED Code Notes Problem Personal history of colonic polyps (Z86.010) Active confirmed History of polyp of colon (situation) (692126244) Encounters Encounter Location Date Provider Diagnosis [facility] [place] [address] [place] [phone] 06/19/2024 Kike Foley Colon cancer scree raciel Z12.11 ; Personal history of colonic polyps Z86.010 and Other hemorrhoids K64.8 ASSESSMENTS Encounter Date Diagnosis Assessment Notes Treatment Notes Treatment Clinical Notes 06/19/2024 Colon cancer screening (ICD-10 - Z12.11) 06/19/2024 Personal history of colonic polyps (ICD-10 - Z86.010) 06/19/2024 Other hemorrhoids (ICD-10 - K64.8) PLAN OF TREATMENT No Information
--- OUTSIDE RECORDS SUMMARY | 2024-11-19 06:24 | XMS_ITS ---
Author Organization [facility] Address [address] [place] [address] Care Team Providers Care Data Scientist Name Role Phone Adilson MCDUFFIE, Gilmar Primary Care Provider Kike Bermudez Unavailable [phone] ALLERGIES No Known Allergies REASON FOR VISIT Patient presents today for a discuss colonoscopy MEDICATIONS Medication SIG (Take, Route, Frequency, Duration) [...] screening (Z12.11) Active confirmed Colon cancer screening (797634381) Problem Encounter for other preprocedural examination (Z01.818) Active confirmed Pre-procedure evaluation check (945770459) Problem History of adenomatous polyp of colon (Z86.010) Active confirmed History of adenomatous polyp of colon (559101513) VITAL SIGNS BMI 29.00 kg/m2 03/04/2024 Blood pressure systolic 000 mm Hg 03/04/20 24 Blood pressure diastolic 00 mm Hg 024 Height 5 ft 10 in in 03/04/2024 Temperature 97.3 degrees Fahrenheit 03/04/20 24 Weight 202 lb 2 oz lbs 03/04/2024 Encounters Encounter Location Date Provider Diagnosis [facility] [address] [place] [address] 03/04/2024 Kike Foley Colon cancer screeni ng Z12.11 ; Encounter for other preprocedural examination Z01.818 and History of adenomatous polyp of colon Z86.010 ASSESSMENTS Encounter Date Diagnosis Assessment Notes Treatment Notes Treatment Clinical Notes 03/04/2024 Colon cancer screening (ICD-10 - Z12.11) 03/04/2024 Encounter for other preprocedural examination (ICD-10 - Z01.818) 03/04/2024 History of adenomatous polyp of colon (ICD-10 - Z86.010) PLAN OF TREATMENT Future Test Test Name Order Date COLONOSCOPY 03/04/2024 Next Appt Details Follow Up: prn, Reason: Progress Notes * Examination Category Sub-Category Detail Notes General Examination GENERAL APPEARANCE: pleasant , well nourished, well developed, in no acute distress HEAD: EYES: sclera non-icteric EARS: NOSE: THROAT: NECK/THYROID: no cervical lymphade nopathy, neck supple HEART: S1, S2 normal CHEST: LUNGS: clear to auscultatio n bilaterally ABDOMEN: normal bowel sounds, no guarding or rigidity, no guarding or rigidity, no masses palpable, soft, nontender, nondistended NEUROLOGIC: alert and oriented SKIN: nonjaundiced, no spi oj angiomata EXTREMITIES: no edema PERIPHERAL PULSES: BACK: BREASTS: MUSCULOSKELETAL: MALE GENITOURINARY: LYMPH NODES: RECTAL EXAM: FEMALE GENITOURINARY: ORAL CAVITY: mucosa moist
[2024-11-19 07:40] LABS: Estimated Average Glucose 91 mg/dL; Hemoglobin A1C 109.1611 umol/L; Hemoglobin A1c % 4.8 % (<6.0); Total Hemoglobin (HGBA1C) 3833.2377 umol/L
[2024-11-19 07:49] LABS: Alanine Aminotransferase 54 U/L (0-40); Aspartate Amino Transferase 69 U/L (5-37); Cholesterol 242 mg/dL (<200); Glucose Fasting 117 mg/dL (60-99); HDL Cholesterol 49 mg/dL (>40); Triglycerides 582 mg/dL (<150)
== END 2024-11-19 06:22 | disposition home or self-care (01) ==
LOC: HO.LAB 06:21
PROVIDERS: PCP Family Medicine; Visit Provider Family Medicine
DX: E78.00 Pure hypercholesterolemia, unspecified (principal); R73.9 Hyperglycemia, unspecified; I25.10 Atherosclerotic heart disease of native coronary artery without angina pectoris; K75.81 Nonalcoholic steatohepatitis (NASH)
CPT/HCPCS: 36415; 80061; 82947; 83036; 84450; 84460

== ENCOUNTER 2025-03-04 06:11 | Outpatient (REF) | payer OTHER, SELFPAY ==
--- OUTSIDE RECORDS SUMMARY | 2025-03-04 06:14 | XMS_ITS ---
Author Organization [facility] Address [address] [place] [address] Care Team Providers Care Stock Mover Name Role Phone Adilson MCDUFFIE, Gilmar Primary Care Provider Unavailab Kike Dover Unavailable [phone] REASON FOR VISIT screening Problems Problem Type SNOMED Code ICD Code Onset Dates Problem Status W/U Status Risk Notes Problem History of polyp of colon (situation) (043709353) Personal history of colonic polyps (Z86.010) Active confirmed Encounters Encounter Location Date Provider Diagnosis [facility] Outpatient [address] [place] [phone] 06/19/2024 Kike Foley Colon cancer scree raciel [...] Notes * MATTHIEU MONTELONGODOB:1975 (49 yo M)Acc No.[id number]:06/19/2024 COLON WITH MAC Patient:?MATTHIEU MONTELONGO Provider:?Kike Foley MD :1975???Age:48 Y???Sex:Male Wyatt e:06/19/2024 Address:[address] [place], [place] [id number] Pcp:Gilmar De Anda MD Subjective: * Chief Complaints: * ???1. Screening. * Medical History:? Objective: * Vitals:? Assessment: * Assessment: 1.?Colon cancer screening - Z12.11 (Primary)???2.?Personal history of colonic polyps - Z86.010???3.?Other hemorrhoids - K64.8??? Plan: * Treatment: * Procedure Codes:?20258 DIAGN OSTIC COLONOSCOPY * Preventive Medicine:? ??HUMBLE Screening:?Colonoscopy?Was interval between colonoscopies three years or more??No due to Medical Reason,?Was last colonoscopy performed three or more years ago??No due to Medical Reason.? * * The named appointment provid er may or may not be the originator of this progress note, and it is not deemed complete until electronically signed by the appointment provider. Sign off status: Pending * Provider:?Kike Foley MD Date:? 024 Generated for Hilario martinez/Evaristo/Connersmitting on:?03/04/2025 06:14 AM EDT
--- OUTSIDE RECORDS SUMMARY | 2025-03-04 06:14 | XMS_ITS ---
Author Organization [facility] Address [address] [place] [address] Care Team Providers Care Advertising Representative Name Role Phone Adilson MCDUFFIE, Gilmar Primary Care Provider Kike Bermudez Unavailable [phone] Allergies No Known Allergies REASON FOR VISIT Patient presents today for a discuss colonoscopy Medications Medication SIG (Take, Route, Frequency, Duration) Notes Start Date End Date Status Metoprolol Succinate ER 25 MG TAKE 1 TABLET BY MOUTH EVERY DAY Oral for 90 Active Immunizations Vaccine Route Administration Date Status Comme nts Influenza Unknown 03/04/2024 Refused Social History Tobacco Use: Social History Observation Description Date Details (start date - stop date) Never Smoker NA - NA Tobacco Use/Smoking Question Answer Notes Patient is [...] Never (0 point) Points 4 Interpretation Positive Section Notes: Smokes marijuana; occasional alcohol, no cigarettes Problems Problem Type SNOMED Code ICD Code Onset Dates Problem Status W/U Status Risk Notes Problem Colon cancer screening (495377786) Colon cancer screening (Z12.11) Active confirmed Problem Pre-procedure evaluation check (936131203) Encounter for other preprocedural examination (Z01.818) Active confirmed Problem History of adenomatous polyp of colon (316610605) History of adenomatous polyp of colon (Z86.010) Active confirmed Vital Signs Temperature 97.3 degrees Fahrenheit 03/04/20 24 Blood pressure systolic 000 mm Hg 03/04/20 24 Blood pressure diastolic 00 mm Hg 024 Height 5 ft 10 in in 03/04/2024 Weight 202 lb 2 oz lbs 03/04/2024 BMI 29.00 kg/m2 03/04/2024 Encounters Encounter Location Date Provider Diagnosis [facility] [address] [place] [address] 03/04/2024 Kike Alaina Colon cancer screeni ng Z12.11 ; Encounter for other preprocedural examination Z01.818 and History of adenomatous polyp of colon Z86.010 Assessments Encounter Date Diagnosis (ICD Code) Assessment Notes Treatment Notes Treatment Clinical Notes Section Notes 03/04/2024 Colon cancer screening (ICD-10 - Z12.11) Overall, Yared appears well. Given his history of a tubular adenoma removed 6 years ago I did recommend a followup colonoscopy for further screening purposes. We did review the rationale for that regard to colon cancer prevention. Full consent was obtained from him for this, including risks of bleeding and perforation. The procedure will be done monitored anesthesia care. Yared was comfortable with this plan. Thank you again for allowing me to participate in Yared's care. I shall continue to keep you advised of his progress. 03/04/2024 Encounter for other preprocedural examination (ICD-10 - Z01.818) Overall, Yared appears well. Given his history of a tubular adenoma removed 6 years ago I did recommend a followup colonoscopy for further screening purposes. We did review the rationale for that regard to colon cancer prevention. Full consent was obtained from him for this, including risks of bleeding and perforation. The procedure will be done monitored anesthesia care. Yared was comfortable with this plan. Thank you again for allowing me to participate in Yared's care. I shall continue to keep you advised of his progress. 03/04/2024 History of adenomatous polyp of colon (ICD-10 - Z86.010) Overall, Yared appears well. Given his history of a tubular adenoma removed 6 years ago I did recommend a followup colonoscopy for further screening purposes. We did review the rationale for that regard to colon cancer prevention. Full consent was obtained from him for this, including risks of bleeding and perforation. The procedure will be done monitored anesthesia care. Yared was comfortable with this plan. Thank you again for allowing me to participate in Yared's care. I shall continue to keep you advised of his progress. Plan Of Treatment Future Test Test Name Order Date COLONOSCOPY 03/04/2024 Next Appt Details Follow Up: prn, Reason: Progress Notes * YARED MONTELONGODOB:1975 (48 yo M)Acc No.[id number]:03/04/2024 Progress Notes Patient:?YARED MONTELONGO Provider:?Kike Foley MD :1975???Age:48 Y???Sex:Male Wyatt e:03/04/2024 Address:[address] [place], [place] [phone] Pcp:Gilmar De Anda MD Subjective: * Chief Complaints: * ???Patient presents today fo r a discuss colonoscopy * HPI: ???incontinence:? I saw Yared in the office today for evaluation of his personal history of a tubular adenoma of the colon and need for colorectal cancer screening. ?As you know, Yared is a healthy 48-year-old male underwent a colonoscopy in January [address] Gerber at [facility] for the evaluation of some bleeding. This revealed a small tubular adenoma that was removed, as well as internal hemorrhoids. He presently feels very well. He enjoys a good appetite, without any significant heartburn or dysphagia. He denies abdominal pain, jaundice, nor weight loss. He denies any change in bowel habits, hematochezia, or melena. He denies any known family history of first-degree relatives with colorectal cancer. * ROS:?General/Constitutional:?Change in appetite?denies.?Chills?denies.?Fatigue?denies.?Ophthalmologic:?Comments?all negative.?ENT:?Comments?all negative.?Respiratory:?hemoptysis?denies.?Cough?denies.?Cardiovascular:?Chest pain?denies.?Orthopnea?denies.?Gastrointestinal:?Comments?See HPI for details.?Genitourinary:?Hematuria?denies.?Dysuria?denies.?Musculoskeletal:?Painful joints?denies.?Weakness?denies.?Skin:?Itching?denies.?Rash?denies.?Neurologic:?Headache?denies.?Seizures?denies.?Psychiatric:?Comments?all negative.? * Medical History:? * Surgical History:?Right hip replacement-avascular necrosis--Dr. Santana hernias--bilateral inguinal and umbilical x 2. * Hospitalization/Major Diagno stic Procedure:?No Hospitalization History. * Family History:?Father: zahraa payne?Mother: alive.? Patient believes his grandfather on father's side had colon cancer, but no first degree relatives. * Social History:?Tobacco Use:?Tobacco Use/Smoking?Patient is a?nonsmoker.?Drugs/Alcohol:?Alcohol Screen?Did you have a drink containing alcohol in the past year??Yes,?How often did you have a drink containing alcohol in the past year??4 or more times a week (4 points),?How many drinks did you have on a typical day when you were drinking in the past year??1 or 2 drinks (0 point),?How often did you have 6 or more drinks on one occasion in the past year??Never (0 point),?Points?4,?Interpretation?Positive.?Miscellaneous:?Marital status: single. 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 ???Smokes marijuana; occasional alcohol, no cigarettes. * Medications:?TakingMetoprolo l Succinate ER 25 MG Tablet Extended Release 24 Hour TAKE 1 TABLET BY MOUTH EVERY DAY Oral Medication List reviewed and reconciled with the patientTaking Metoprolol Succinate ER 25 MG Tablet Extended Release 24 Hour TAKE 1 TABLET BY MOUTH EVERY DAY Oral Medication List reviewed and reconciled with the patient * Allergies:?N.K.D.A.yes[Aller gies Verified] Objective: * Vitals:?Wt: 202 lb 2 oz, Ht: 5 ft 10 in, BMI:29.00 Index, BP: 000/00 mm Hg, Temp: 97.3. * Examination: ???General Examination: ?GENERAL APPEARANCE:?pleasant, well nourished, well developed, in no acute distress.?EYES:?sclera non-icteric.?ORAL CAVITY:?mucosa moist.?NECK/THYROID:?no cervical lymphadenopathy, neck supple.?SKIN:?nonjaundiced, no spider angiomata.?HEART:?S1, S2 normal.?LUNGS:?clear to auscultation bilaterally.?ABDOMEN:?normal bowel sounds, no guarding or rigidity, no guarding or rigidity, no masses palpable, soft, nontender, nondistended.?EXTREMITIES:?no edema.?NEUROLOGIC:?alert and oriented.? Assessment: * Assessment: 1.?Encounter for other prepr ocedural examination - Z01.818 (Primary)?2.?Colon cancer screening - Z12.11?3.?History of adenomatous polyp of colon - Z86.010? Overall, Yared appears well. Given his history of a tubular adenoma removed 6 years ago I did recommend a followup colonoscopy for further screening purposes. We did review the rationale for that regard to colon cancer prevention. Full consent was obtained from him for this, including risks of bleeding and perforation. The procedure will be done monitored anesthesia care. Yared was comfortable with this plan. Thank you again for allowing me to participate in Yared's care. I shall continue to keep you advised of his progress. Plan: * Treatment: * Immunizations:? Influenza (Not administered - Refused: Patient decision) * Procedure Codes:?3017F COLOR ECTAL CA SCREEN DOC [id number] TOBACCO [id number] BP SCR NOT PRFRM REC REASON NOS * Preventive Medicine:? ??Counseling:?Care goal follow-up plan:?Above Normal BMI Follow-up?Giving encouragement to exercise,?BMI management provided?Yes.? * Follow Up:?prn * * Sign off status: Completed true * Provider:?Kike Foley MD Date:? 024 Generated for Hilario martinez/Evaristo/Ochoa on:?03/04/2025 06:14 AM EDT History and Physical Notes * HPI (History of Present Illness) Category Sub-Category Detail Notes Category Not es incontinence I saw Yared in the office today for evaluation of his personal history of a tubular adenoma of the colon and need for colorectal cancer screening. As you know, Yared is a healthy 48-year-old male underwent a colonoscopy in January [address] Gerber at [facility] for the evaluation of some bleeding. This revealed a small tubular adenoma that was removed, as well as internal hemorrhoids. He presently feels very well. He enjoys a good appetite, without any significant heartburn or dysphagia. He denies abdominal pain, jaundice, nor weight loss. He denies any change in bowel habits, hematochezia, or melena. He denies any known family history of first-degree relatives with colorectal cancer. Examination Category Sub-Category Detail Notes Category Not es General Examination GENERAL APPEARANCE: pleasant , well [...]
--- OUTSIDE RECORDS SUMMARY | 2025-03-04 06:14 | XMS_ITS | Patient Health Record ---
Author Organization [facility] Address [address] [place] [address] Care Team Providers Care Safety Assistant Name Role Phone Adilson MCDUFFIE, Gilmar Primary Care Provider UnavailKike Cain Unavailable [phone] Allergies No Known Allergies Reason For Referral No Information Medications Medication SIG (Take, Route, Frequency, Duration) [...] Status Risk Notes Problem Colon cancer screening (426104513) Colon cancer screening (Z12.11) Active confirmed Problem History of adenomatous polyp of colon (050509280) History of adenomatous polyp of colon (Z86.010) Active confirmed Problem History of polyp of colon (situation) (647070745) Personal history of colonic polyps (Z86.010) Active confirmed Problem Pre-procedure evaluation check (868976972) Encounter for other preprocedural examination (Z01.818) Active confirmed Vital Signs Temperature 97.3 degrees Fahrenheit 03/04/2024 Blood pressure diastolic 00 mm Hg 03/04/2024 Height 5 ft 10 in in 03/04/2024 Blood pressure systolic 000 mm Hg 03/04/2024 Weight 202 lb 2 oz lbs 03/04/2024 BMI 29.00 kg/m2 03/04/2024 Encounters Encounter Location Date Provider Diagnosis [facility] [place] [address] [place], [place] [phone] 06/19/2024 Kike Foley Colon cancer screeni ng Z12.11 ; Personal history of colonic polyps Z86.010 and Other hemorrhoids K64.8 [facility] [address] [place] [address] 03/04/2024 Kike Foley Colon cancer screeni ng [...] to keep you advised of his progress. 06/19/2024 Other hemorrhoids (ICD-10 - K64.8) 03/04/2024 [...] Insured Coverage Start Date Coverage End Date [facility] [address] [place] [phone] [id number] REGINALDYARED PACHECO Self - patient is the insured Medical (General) History Medical History History ICD Code HTN Colonoscopy 01/[address] Gerber with the removal of a small tubular adenoma Denies [place],DM,CVA,Lung disease,renal dise ase Surgical History Surgery Date(Month/Year) Right hip replacement-avascular necrosis --Dr. Santana 2021 4 hernias--bilateral inguinal and umbili gladys x 2.
[2025-03-04 07:34] LABS: Estimated Average Glucose 91 mg/dL; Hemoglobin A1C 106.1827 umol/L; Hemoglobin A1c % 4.8 % (<6.0); Total Hemoglobin (HGBA1C) 3731.7197 umol/L
[2025-03-04 07:38] LABS: Alanine Aminotransferase 32 U/L (0-40); Aspartate Amino Transferase 43 U/L (5-37); Glucose Fasting 105 mg/dL (60-99)
== END 2025-03-04 06:12 | disposition home or self-care (01) ==
LOC: HO.LAB 06:11
PROVIDERS: PCP Family Medicine; Visit Provider Family Medicine
DX: E78.1 Pure hyperglyceridemia (principal); R73.9 Hyperglycemia, unspecified
CPT/HCPCS: 36415; 82550; 82947; 83036; 84450; 84460

== ENCOUNTER 2025-07-19 14:27 | Outpatient (AMB) | payer OTHER, SELFPAY ==
--- OUTSIDE RECORDS SUMMARY | 2024-06-19 04:30 | XMS_ITS ---
Author Organization [facility] Address [address] [place] [id number] Care Team Providers Care Autoclave Operator Name Role Phone Adilson (RETIRED) , Gilmar Primary Care Provider Unavailable Kike Foley Unavailable [phone] REASON FOR VISIT screening Problems Problem Type SNOMED Code ICD Code Onset Dates Problem Status W/U Status Risk Notes Problem History of polyp of colon (situation) (059250171) Personal history of colonic polyps (Z86.010) Active confirmed Encounters Encounter Location Date Provider Diagnosis [facility] [address] [place] [phone] 06/19/2024 Kike Foley Colon cancer scree raciel Z12.11 ; Personal history of colonic polyps Z86.010 and Other hemorrhoids K64.8 Assessments Encounter Date Diagnosis (ICD Code) Assessment Notes Treatment Notes Treatment Clinical Notes Section Notes 06/19/2024 Colon cancer screening (ICD-10 - Z12.11) 06/19/2024 Personal history of colonic polyps (ICD-10 - Z86.010) 06/19/2024 Other hemorrhoids (ICD-10 - K64.8) Plan Of Treatment No Information Progress Notes * MATTHIEU MONTELONGODOB:1975 (49 yo M)Acc No.[id number]:06/19/2024 COLON WITH MAC Patient: MATTHIEU MARTINI Provider: Dalia Foley MD :1975 A ge:48 Y S ex:Male Date:06/19/2024 Address:[address] [place], [place] [id number] Pcp:Gilmar De Anda (RETIRED) MD Subjective: * Chief Complaints: * 1 . Screening. * Medical History: Objective: * Vitals: Assessment: * Assessment: 1. C olon cancer screening - Z12.11 (Primary) 2 . P ersonal history of colonic polyps - Z86.010 3 . O ther hemorrhoids - K64.8 Plan: * Treatment: * Procedure Codes: 4 5378 DIAGNOSTIC COLONOSCOPY * Preventive Medicine: HUMBLE Screening: C olonoscopy W as interval between colonoscopies three years or more? N o due to Medical Reason, W as last colonoscopy performed three or more years ago??No due to Medical Reason. * * The named appointment provid er may or may not be the originator of this progress note, and it is not deemed complete until electronically signed by the appointment provider. Sign off status: Pending * Provider: Dalia Foley MD Date: 06/19/2024 Generated for Hilario martinez/Evaristo/Keronitting on: 07/19/2025 04:18 PM EDT
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
[2025-07-19 14:37] VITALS: BP 148/72; PULSE 106; RESP 18; TEMP 36.8; O2SAT 97; BMI 28.6
--- OUTSIDE RECORDS SUMMARY | 2025-07-19 16:19 | XMS_ITS | Patient Health Record ---
Author Organization [facility] Address [address] [place] [address] Care Team Providers Care Customer Support Analyst Name Role Phone Adilson (RETIRED) Gilmar MCDUFFIE Primary Care Provider Unavailable Kike Foley Unavailable [phone] Allergies No Known Allergies Reason For Referral [...] Status Risk Notes Problem Colon cancer screening ([id number]) Colon cancer screening (Z12.11) Active confirmed Problem History of adenomatous polyp of colon (817602446) History of adenomatous polyp of colon (Z86.010) Active confirmed Problem History of polyp of colon (situation) (457241285) Personal history of colonic polyps (Z86.010) Active confirmed Problem Pre-procedure evaluation check ([id number]) Encounter for other preprocedural examination (Z01.818) Active confirmed Plan Of Treatment Future Test Test Name Order Date COLONOSCOPY 03/04/2024 Insurance Providers Payer Name Payer Address Payer Phone Subscriber Number Group Number Insured Name Patient Relationship to Insured Coverage Start Date Coverage End Date [facility] [address] [place] [phone] [id number] Self - patient is the insured Medical (General) History Medical History History ICD Code HTN Colonoscopy 01/[address] Gerber with the removal of a small tubular adenoma Denies [place],DM,CVA,Lung disease,renal dise ase Surgical History Surgery Date(Month/Year) Right hip replacement-avascular necrosis --Dr. Santana 2021 4 hernias--bilateral inguinal and umbili gladys x 2.
== END 2025-07-19 15:00 | disposition home or self-care (01) ==
PROVIDERS: PCP Student in an Organized Health Care Education/Training Program; Visit Provider Student in an Organized Health Care Education/Training Program
DX: I10 Essential (primary) hypertension (principal); M87.052 Idiopathic aseptic necrosis of left femur; E78.1 Pure hyperglyceridemia

== ENCOUNTER 2025-07-19 14:27 | Outpatient (REF) | payer OTHER, SELFPAY ==
[2025-07-19 15:24] LABS: MANUAL DIFF FLAG NO
[2025-07-19 16:23] LABS: Hematocrit 41.7 % (42.0-52.0); Hemoglobin 15.0 g/dl (14.0-18.0); Imm Gran Abs Auto 0.02 X10*3/uL (0.00-0.03); Imm Gran Pct Auto 0.3 % (0.0-0.4); Lymphocytes Absolute Auto 1.2 X10*3/uL (1.2-4.9); Mean Corpuscular HGB Conc 36.0 g/dl (31.0-36.0); Mean Corpuscular Hemoglobin 32.2 pg (27.0-33.0); Mean Corpuscular Volume 89.5 fL (80.0-98.0); NRBC Abs Auto 0.000 X10*3/uL (0.0-0.012); NRBC Pct Auto 0.0 /100WBC (0.0-0.2); Platelet Count 228 X10*3/uL (160-400); Red Blood Count 4.66 X10*6/uL (4.60-5.80); White Blood Count 6.5 X10*3/uL (4.8-10.8)
[2025-07-19 17:05] LABS: Alanine Aminotransferase 46 U/L (0-40); Albumin Level 4.7 g/dL (3.5-5.0); Alkaline Phosphatase 66 U/L (39-117); Anion Gap 14 (12-20); Aspartate Amino Transferase 52 U/L (5-37); Blood Urea Nitrogen 8 mg/dL (9-16); Calcium 9.3 mg/dL (8.4-10.2); Carbon Dioxide 22 mmol/L (22-29); Chloride 110 mmol/L (96-108); Cholesterol 173 mg/dL (<200); Estimated Glomerular Filt Rate > 60; HDL Cholesterol 45 mg/dL (>40); Potassium 3.6 mmol/L (3.3-5.1); Sodium 142 mmol/L (135-145); Total Protein 7.4 g/dL (6.5-8.0); Triglycerides 601 mg/dL (<150)
[2025-07-19 18:10] LABS: Free T4 (Free Thyroxine) 0.85 ng/dL (0.71-1.85)
[2025-07-20 05:17] LABS: Syphilis Screen Nonreactive (Nonreactive)
[2025-07-20 06:02] LABS: HBS Num1 0.04 mIU/mL (0-7.99); HBc Num1 0.09 S/CO (0.00-0.79); HBsAGNum1 0.34 S/CO (0.00-0.99); HIV Num 1 0.05 S/CO (0.00-0.99); Hepatitis A Antibody IgM 0.30 Index (0-0.79); Hepatitis B Surface Antigen Negative (Negative); ~HepC Num1 0.14 S/CO (0.00-0.79); ~Hepatitis A Antibody IgM Nonreactive (Nonreactive); ~Hepatitis B Surface Antibody NONREACTIVE (Nonreactive); ~Hepatitis C Antibody Nonreactive (Nonreactive)
== END 2025-07-19 14:28 | disposition home or self-care (01) ==
LOC: HO.LAB 14:27
PROVIDERS: PCP Student in an Organized Health Care Education/Training Program; Visit Provider Student in an Organized Health Care Education/Training Program
DX: Z76.89 Persons encountering health services in other specified circumstances (principal); I10 Essential (primary) hypertension; M87.052 Idiopathic aseptic necrosis of left femur; E78.1 Pure hyperglyceridemia; Z79.899 Other long term (current) drug therapy
CPT/HCPCS: 36415; 80053; 80061; 82306; 83036; 84439; 84443; 85025; 86704; 86706; 86709; 86780; 86803; 87340; 87389; 96127